=== PATIENT | female | born 1960 | race Caucasian/White ===

== ENCOUNTER 2017-05-24 09:53 | Emergency (ER) | payer OTHER ==
[2017-05-24 09:57] VITALS: BP 136/67; PULSE 80; RESP 16; TEMP 98.1; O2SAT 99
[2017-05-24 09:58] VITALS: BMI 18.6
--- NOTE | 2017-05-24 10:39 | ED PDOC ---
HPI: General Adult Time Seen by Provider: 05/24/17 10:22 Chief Complaint (Nursing): Abnormal Labs Chief Complaint (Provider): abnoral labs History Per: Patient History/Exam Limitations: no limitations Additional Complaint(s): Yulia Howell is a 56 year old female, with a previous medical history of hypercholesterolemia, who was sent to the ED by her PMD after blood work showed a WBC of 1.6. Patient reports having a left sided headache but denies any fevers or other complaints at this time. PMD: Dr. Hampton Past Medical History Reviewed: Historical Data, Nursing Documentation, Vital Signs Vital Signs: Last Vital Signs Temp 98.1 F 05/24/17 09:56 Pulse 80 05/24/17 09:56 Resp 16 05/24/17 09:56 BP 136/67 05/24/17 09:56 Pulse Ox 99 05/24/17 10:40 - Medical History PMH: Arthritis, Hypercholesterolemia - Surgical History Surgical History: Cholecystectomy - Family History Family History: States: Unknown Family Hx - Home Medications Home Medications: Ambulatory Orders Medication Instructions Recorded Lovastatin [Altoprev] 1 tab PO DAILY 10/14/16 - Allergies Allergies/Adverse Reactions: Allergies Allergy/AdvReac Type Severity Reaction Status Date / Time No Known Allergies Allergy Verified 10/14/16 08:15 Review of Systems ROS Statement: Except As Marked, All Systems Reviewed And Found Negative Constitutional: Negative for: Fever, Chills Neurological: Positive for: Headache Physical Exam - Reviewed Nursing Documentation Reviewed: Yes Vital Signs Reviewed: Yes - Physical Exam Appears: Positive for: Well, Non-toxic, No Acute Distress Head Exam: Positive for: ATRAUMATIC, NORMAL INSPECTION, NORMOCEPHALIC Skin: Positive for: Normal Color, Warm, Dry Eye Exam: Positive for: EOMI, Normal appearance, PERRL ENT: Positive for: Normal ENT Inspection Neck: Positive for: Normal, Painless ROM, Supple Cardiovascular/Chest: Positive for: Regular Rate, Rhythm Respiratory: Positive for: CNT, Normal Breath Sounds Gastrointestinal/Abdominal: Positive for: Normal Exam, Bowel Sounds, Soft. Negative for: Tenderness Back: Positive for: Normal Inspection Extremity: Positive for: Normal ROM Neurologic/Psych: Positive for: Alert, Oriented - Laboratory Results Result Diagrams: 05/24/17 10:15 05/24/17 10:15 - ECG O2 Sat by Pulse Oximetry: 99 (RA) Pulse Ox Interpretation: Normal Medical Decision Making Medical Decision Making: Initial Plan: * CT head * labs * reevaluation Scribe Attestation: Documented by Ileana Cohen, acting as a scribe for Sorin Mckeon MD. Provider Scribe Attestation: All medical record entries made by the Scribe were at my direction and personally dictated by me. I have reviewed the chart and agree that the record accurately reflects my personal performance of the history, physical exam, medical decision making, and the department course for this patient. I have also personally directed, reviewed, and agree with the discharge instructions and disposition. Disposition - Clinical Impression Clinical Impression: Leukopenia - Patient ED Disposition Is Patient to be Admitted: No - Disposition Referrals: Leo Gan MD [Staff Provider] - Disposition: Routine/Home Disposition Time: 13:48 Condition: FAIR Additional Instructions: Follow up with Dr. Gan Friday05/26/2017 in morning Forms: [employer] (Serbian), [employer] (Vietnamese) Print Language: SAMMARINESE
[2017-05-24 10:55] LABS: BASO % 1.4 % (0.0-2.0); HEMATOCRIT 37.7 % (34.0-47.0); LYMPH % 52.8 % (20.0-40.0); MEAN CELL VOLUME 81.5 fl (81.0-99.0); MEAN CORPUSCULAR HEMOGLOBIN 27.3 pg (27.0-31.0); MEAN CORPUSCULAR HGB CONC 33.4 g/dL (33.0-37.0); MEAN PLATELET VOLUME 7.7 fl (7.2-11.7); MONO # 0.6 K/uL (0.0-0.8); MONO % 29.6 % (0.0-10.0); NEUT # 0.3 K/uL (1.8-7.0); NEUT % 14.2 % (50.0-75.0); NRBC % 0.2 % (0.0-0.0); PLATELET COUNT 127 K/uL (130-400); RED CELL DISTRIBUTION WIDTH 14.4 % (11.5-14.5)
[2017-05-24 11:02] LABS: ALB/GLOB RATIO 1.1 (1.0-2.1); ALKALINE PHOSPHATASE 87 U/L (38-126); ALT/SGPT 38 U/L (9-52); AST/SGOT 27 U/L (14-36); BILIRUBIN,TOTAL 0.5 mg/dl (0.2-1.3); BLOOD UREA NITROGEN 14 mg/dl (7-17); CALCIUM 9.2 mg/dL (8.4-10.2); CARBON DIOXIDE 24 mmol/L (22-30); CHLORIDE 105 mmol/L (98-107); GFR AFRICAN-AMERICAN > 60; GLUCOSE,RANDOM 111 mg/dL (65-105); POTASSIUM 4.2 MMOL/L (3.6-5.0); SODIUM 140 mmol/l (132-148); TOTAL PROTEIN 8.5 G/DL (6.3-8.2)
--- NOTE | 2017-05-24 11:32 | CT ---
PROCEDURE: CT HEAD WITHOUT CONTRAST. HISTORY: r/o bleed COMPARISON: None available. TECHNIQUE: Axial computed tomography images were obtained through the head/brain without intravenous contrast. Radiation dose: Total exam DLP = 850 mGy-cm. This CT exam was performed using one or more of the following dose reduction techniques: Automated exposure control, adjustment of the mA and/or kV according to patient size, and/or use of iterative reconstruction technique. FINDINGS: HEMORRHAGE: No intracranial hemorrhage. BRAIN: No mass effect or edema. No atrophy or chronic microvascular ischemic changes. VENTRICLES: Unremarkable. No hydrocephalus. CALVARIUM: Unremarkable. PARANASAL SINUSES: Unremarkable as visualized. No significant inflammatory changes. MASTOID AIR CELLS: Unremarkable as visualized. No inflammatory changes. OTHER FINDINGS: None. IMPRESSION: Normal CT of the Head.
[2017-05-24 11:35] LABS: WHITE BLOOD COUNT 1.9 K/uL (4.8-10.8)
[2017-05-24 13:59] LABS: BASOPHIL 1 % (0-2); EOSINOPHIL 1 % (0-7); NEUTROPHIL 18 % (42-75); REACTIVE LYMPHOCYTES 2 % (0-0); TOTAL CELLS COUNTED 100
[2017-05-24 14:00] LABS: LARGE PLATELETS PRESENT
--- NOTE | 2017-05-24 14:25 | RAD ---
HISTORY: Leukopenia COMPARISON: No prior. TECHNIQUE: Chest PA and lateral FINDINGS: LUNGS: No active pulmonary disease. PLEURA: No significant pleural effusion identified. No pneumothorax apparent. CARDIOVASCULAR: Normal. OSSEOUS STRUCTURES: No significant abnormalities. VISUALIZED UPPER ABDOMEN: Normal. OTHER FINDINGS: None. IMPRESSION: No active disease.
== END 2017-05-24 14:20 | disposition home or self-care (01) ==
LOC: H.ER 09:53
DX: D72.819 Decreased white blood cell count, unspecified (principal); E78.00 Pure hypercholesterolemia, unspecified